=== PATIENT | male | born 1950 | race Caucasian/White ===

== ENCOUNTER → 2019-05-02 | Outpatient (CLI) | payer MEDICARE ==
--- NOTE | 2019-05-02 10:18 | Diagnostic Imaging Report ---
ADDENDUM #1 Addendum: Urinary bladder was removed in 2007. No mass in the pelvis is identified. The prostate is not well seen. Signed by: Dr. Tan Izaguirre DO on 05/04/2019 7:23 AM ORIGINAL REPORT Renal ultrasound. History: CKD Discussion: Transverse and longitudinal images of the kidneys were obtained demonstrating normal renal sizes and echogenicities. There is no evidence of hydronephrosis, mass or renal calculus. The right kidney measures 11.8 x 6.5 x 6.2 cm with a maximal cortical thickness of 1.8 cm and the left kidney measures 13.4 x 6.0 x 5.2 cm with a maximal cortical thickness of 2.2 cm in length. The urinary bladder was removed in 2007. There is no evidence of free fluid. IMPRESSION: Normal renal ultrasound. Signed by: Dr. Tan Izaguirre DO on 05/02/2019 10:15 AM
== END ==
LOC: US 08:33
PROVIDERS: ATTEND Internal Medicine Nephrology
DX: N18.3 Chronic kidney disease, stage 3 (moderate) (principal)
CPT/HCPCS: 76770; 76857